=== PATIENT | male | born 1955 | race Caucasian/White ===

== ENCOUNTER 2016-10-25 20:35 | Inpatient (IN) | payer BC, MEDICAID ==
[~2016-10-25] VITALS: Ht 190.5 cm; Wt 124.7 kg
[~2016-10-25 20:35] MED LIST: AMIODARONE PO; ASPI81CH43 PO; DABI150C PO; FAMO40TA49 PO; LEVEMIR SC; LISI-206 PO; METF-312 PO; METF-316 PO; NITR0.4S31 SL; SEE LIST
[2016-10-25] MEDS ORDERED: SODIUM CHLORIDE 0.9% 1,000 ML IVB ONE (20:53)
[2016-10-25] MEDS ORDERED: DEXTROSE (50%) 50ML SYRG IV ONE (21:00)
[2016-10-25 21:29] LABS: Basophils # (auto) 0 uL; Basophils % (auto) 0.3 % (0.0-2.0); Eosinophils # (auto) 0.3 uL; Eosinophils % (auto) 3.4 % (0.0-7.0); Hematocrit 42.1 % (41.0-53.0); Hemoglobin 14.3 g/dL (13.5-17.5); Lymphocytes # (auto) 2.4 uL; Lymphocytes % (auto) 23.7 % (10.0-50.0); Mean Corpuscular Hemoglobin 31.3 pg (28.0-32.0); Mean Corpuscular Volume 91.8 fL (80.0-100.0); Mean Platelet Volume 10.1 fL (7.4-10.4); Monocytes # (auto) 0.9 uL; Monocytes % (auto) 8.8 % (0.0-12.0); Neutrophils # (auto) 6.3 uL; Neutrophils % (auto) 63.8 % (37.0-80.0); Platelet Count (auto) 186 10^3/uL (140-450); Red Cell Distribution Width 12.6 % (11.6-16.0); White Blood Cell 9.9 10^3/uL (4.4-10.8)
[2016-10-25 21:47] LABS: Albumin 3.7 g/dL (3.4-5.0); Amylase 48 U/L (25-115); Anion Gap 10 (5-15); Aspartate Aminotransferase 17 U/L (15-37); BUN/Creatinine Ratio 22.1; Blood Urea Nitrogen 21 mg/dL (7-18); Calcium 8.6 mg/dL (8.5-10.1); Carbon Dioxide 21 mmol/L (21-32); Chloride 108 mmol/L (98-107); GFR African American 104 mL/min; GFR Non-African American 86 mL/min; Glucose 58 mg/dL (74-106); Magnesium 1.8 mg/dL (1.6-2.6); Potassium 3.3 mmol/L (3.5-5.1); Sodium 139 mmol/L (136-145)
[2016-10-25 21:52] LABS: Alkaline Phosphatase 54 U/L (45-117); Bilirubin, Total 0.3 mg/dL (0.2-1.0); Total Protein 7.9 g/dL (6.4-8.2)
[2016-10-25 21:57] LABS: INR 1.08 (0.9-1.15); Partial Thromboplastin Time 29.2 sec (22.64-33.71); Prothrombin Time 11.1 sec (9.37-12.3)
[2016-10-25] MEDS ORDERED: [UNRECOGNIZED DRUG - OTHER] (22:20)
[2016-10-25] MEDS ORDERED: ZOLP10TA6 PO (22:20)
[2016-10-25] MEDS ORDERED: RIVA10TA PO (22:20)
[2016-10-25] MEDS ORDERED: PRAS10TA6 PO (22:20)
[2016-10-25] MEDS ORDERED: ASPirin 81 mg TAB ONE (22:40)
[2016-10-25 22:57] LABS: B-Type Natriuretic Peptide 185.41 pg/mL (0-100); Temperature: 22.2 C (20.0-25.0)
[2016-10-25] MEDS ORDERED: ASPirin 81 mg TAB PO ONE (23:00)
[2016-10-25] MEDS ORDERED: ONDANSETRON HCL 4 MG/2 ML VIAL IV ONE (23:30)
[2016-10-25] MEDS ORDERED: MORPHINE SULF INJ 2 MG/ML SYRINGE 1ML IV ONE (23:30)
[2016-10-26] MEDS ORDERED: MORPHINE SULFATE 4 MG/ML SYRG IV ONE (01:00)
[2016-10-26] MEDS ORDERED: ONDANSETRON HCL 4 MG/2 ML VIAL IV ONE (01:00)
[2016-10-26] MEDS ORDERED: NITROGLYCERIN 0.4 MG SL TAB SL PRN (02:30)
[2016-10-26] MEDS ORDERED: HYDROcodone-ACET 5/325MG TAB PO PRN (02:30)
[2016-10-26] MEDS ORDERED: ONDANSETRON HCL 4 MG/2 ML VIAL IV PRN (02:30)
[2016-10-26] MEDS ORDERED: METOPROLOL TARTRATE 1MG/1ML-5ML VIAL IV ONE (02:30)
[2016-10-26] MEDS ORDERED: MORPHINE SULF INJ 2 MG/ML SYRINGE 1ML IV PRN (02:30)
[2016-10-26] MEDS ORDERED: DEXTROSE (50%) 50ML SYRG IV PRN (02:30)
[2016-10-26] MEDS ORDERED: TEMAZEPAM 15 MG CAP PO PRN (02:30)
[2016-10-26] MEDS ORDERED: ACETAMINOPHEN 325 MG TAB PO PRN (02:30)
[2016-10-26] MEDS ORDERED: POTASSIUM CHL 20 Meq TABLET PO ONE (02:45)
[2016-10-26 04:37] VITALS: BP 102/69
[2016-10-26 05:30] VITALS: BP 93/58
[2016-10-26] MEDS ORDERED: InsuLIN REG 1unit/0.01ml Soln (100units/ml) SC SCH (06:00)
[2016-10-26] MEDS ORDERED: ACCU-CHEK COMFORT CURVE STRIP VI SCH (06:00)
[2016-10-26] MEDS ORDERED: FAMOTIDINE 20 MG TAB PO SCH (10:00)
[2016-10-26] MEDS ORDERED: ASPirin 81 mg TAB PO SCH (10:00)
[2016-10-26] MEDS ORDERED: DABIGATRAN 75 MG CAP PO SCH (10:00)
[2016-10-26] MEDS ORDERED: LISINOPRIL 10 MG TAB PO SCH (10:00)
[2016-10-26] MEDS ORDERED: SOTALOL HCL 80 MG TAB PO SCH (10:00)
[2016-10-26] MEDS ORDERED: PRASUGREL HCL 10 MG TAB PO SCH (10:00)
[2016-10-26] MEDS ORDERED: AMIODARONE HCL 200 MG TAB PO SCH (10:00)
[2016-10-26] MEDS ORDERED: PATIENTS OWN MEDICATION (xarelto 20 MG) PO SCH (10:00)
[2016-10-26] MEDS ORDERED: RIVAROXABAN 20 MG TAB PO SCH (18:00)
[2016-10-26] MEDS ORDERED: ATORVASTATIN 20 MG TAB PO SCH (22:00)
== END 2016-10-26 08:37 | disposition left against medical advice (07) | DRG 310 ==
LOC: EDBD 20:35 → ER 20:41 → TELE 20:42 → TELE-WESTW 10-26 04:00
PROVIDERS: ADMIT Nurse Practitioner; ATTEND Nurse Practitioner
DX: I48.0 Paroxysmal atrial fibrillation (principal); E11.649 Type 2 diabetes mellitus with hypoglycemia without coma; I48.92 Unspecified atrial flutter; E66.9 Obesity, unspecified; E78.5 Hyperlipidemia, unspecified; E87.6 Hypokalemia; I25.10 Atherosclerotic heart disease of native coronary artery without angina pectoris; I51.7 Cardiomegaly; M19.90 Unspecified osteoarthritis, unspecified site; M47.814 Spondylosis without myelopathy or radiculopathy, thoracic region; I10 Essential (primary) hypertension; Z82.3 Family history of stroke; Z82.49 Family history of ischemic heart disease and other diseases of the circulatory system; I25.2 Old myocardial infarction; Z83.3 Family history of diabetes mellitus; Z87.891 Personal history of nicotine dependence; Z95.5 Presence of coronary angioplasty implant and graft; Z88.0 Allergy status to penicillin; Z68.34 Body mass index [BMI] 34.0-34.9, adult
CPT/HCPCS: 36415; 71010; 80053; 80320; 82150; 82962; 83690; 83735; 83880; 84484; 85025; 85610; 85730; 93005; 96361; 96374; 96375; 96376; J2405